=== PATIENT | female | born 1950 | race Caucasian/White ===

== ENCOUNTER → 2017-11-16 | Outpatient (CLI) | payer OTHER, MEDICAID ==
[~2017-11-16] MED LIST: CA C1TAB60 PO; CARI350T14 PO; HYDR-3307 PO; LEVO100C2 PO; LEVO175T36 PO; MOEX1TAB6 PO; MONT10TA6 PO; MULT-658 PO; POTA10TA6 PO; REGADENOSON 0.4 MG/5 ML SYRINGE ONE; TRAM50TA2 PO; WARF-36 PO; WARF1POW PO
== END | disposition home or self-care (01) ==
LOC: CFH 08:37
PROVIDERS: ATTEND Internal Medicine Cardiovascular Disease
DX: Z01.810 Encounter for preprocedural cardiovascular examination (principal); I10 Essential (primary) hypertension; R07.9 Chest pain, unspecified
CPT/HCPCS: C8929; J2785; Q9957; 78452; 93017; A9502

== ENCOUNTER 2018-03-15 11:16 | Emergency (ER) | payer MEDICARE, MEDICAID ==
[~2018-03-15] VITALS: Ht 170.2 cm; Wt 135.0 kg
[~2018-03-15 11:16] MED LIST changes: -REGADENOSON 0.4 MG/5 ML SYRINGE ONE
--- NOTE | 2018-03-15 11:26 | NUR ---
pt to ed for glf while at neurology appt this am at 10:40. no loc. pain with movement of left shoulder. left knee numb. abrasion noted to left side of face with no pain noted. pt is currently taking coumadin. connected to monitors. vss. md to bedside for assessment. orders received. lab to bedside for draw. call light wtihin reach. awaiting imaging at this time.
--- NOTE | 2018-03-15 11:37 | NUR ---
pt to imaging.
[2018-03-15 11:47] LABS: INTERNATIONAL NORMALIZED RATIO 2.35 (0.93-1.1); PROTHROMBIN TIME 24.1 Seconds (9.6-11.5)
[2018-03-15 12:37] VITALS: BP 114/65
--- NOTE | 2018-03-15 12:38 | NUR ---
pt resting in room ith friend at bedside. call light within reach. all results back at this time. chart up for recheck.
--- NOTE | 2018-03-15 13:49 | NUR ---
PT REFUSED CANE. EDUCATION PROVIDED. ACCEPTED WALKER INSTEAD EVEN THOUGH LEFT ARM CANNOT BE USED. NO OTHER NEEDS AT THIS TIME.
== END 2018-03-15 13:53 | disposition home or self-care (01) ==
LOC: ED 13:45
DX: S42.202A Unspecified fracture of upper end of left humerus, initial encounter for closed fracture (principal); S00.83XA Contusion of other part of head, initial encounter; R51 Headache; W18.30XA Fall on same level, unspecified, initial encounter; Y93.89 Activity, other specified; Y92.89 Other specified places as the place of occurrence of the external cause; Y99.8 Other external cause status
CPT/HCPCS: 29105; 36415; 70450; 72125; 85610; 99284

== ENCOUNTER → 2019-12-11 | Outpatient (CLI) | payer MEDICARE, MEDICAID ==
[~2019-12-11] MED LIST changes: +HYDR-3246 PO; -HYDR-3307 PO
== END | disposition home or self-care (01) ==
LOC: CFH 07:46
PROVIDERS: ATTEND Family Medicine
DX: Z12.31 Encounter for screening mammogram for malignant neoplasm of breast (principal)
CPT/HCPCS: 77063; 77067